=== PATIENT | male | born 1955 | race Caucasian/White ===

== ENCOUNTER 2019-01-03 12:09 | Emergency (ER) | payer OTHER ==
[~2019-01-03] VITALS: Ht 185.4 cm; Wt 78.0 kg
[2019-01-03 12:18] VITALS: BP 119/87
--- NOTE | 2019-01-03 12:22 | NUR ---
Pt ambulated to bed 6.
--- NOTE | 2019-01-03 12:52 | NUR ---
63/M presents to ED with complaints of generalized abd pain x2 months. Pt was sent here by PCP for further evaluation. Pt c/o generalized abd pain, non radiating, dull, 3/10 at this time. Pt states he took a Motrin prior to arrival with relief of pain. Pt reports that without Motrin pain is 10/10. Abdomen soft, slightly distended, facial grimacing with palpation in all x4 quadrants. Hyperactive bowel sounds x 4 quadrants. Pt denies N/V/D, denies constipation. LBM this am. Pt is awake and alert, conversing appropriately. Samoan speaking, translation provided by myself. Pt appropriate at this time. Pt placed into a gown, belongings bag provided and shirt placed in bag and set on chairside. Pt placed on cardiac montior, pulse oximetry and blood pressure monitoring. cardiac monitor shows sinus tachycardac at 103.
--- NOTE | 2019-01-03 13:08 | NUR ---
PT SLEEPING, ABLE TO VISUALIZE RISE AND FALL OF CHEST. WILL CONTINUE TO MONITOR.
--- NOTE | 2019-01-03 13:32 | NUR ---
Patient being evaluated by DR BARTLETT at bedside.
[2019-01-03] MEDS ORDERED: NACL 0.9% 1,000 ML IV SCH (13:39)
[2019-01-03 14:01] LABS: BASOPHILS # (AUTO) 0.1 K/uL (0.00-0.22); BASOPHILS % (AUTO) 0.8 % (0.0-2.0); EOSINOPHILS # (AUTO) 0.1 K/uL (0-0.4); EOSINOPHILS % (AUTO) 1.2 % (0.0-4.0); HEMATOCRIT 41.8 % (36-52); HEMOGLOBIN 14.1 g/dL (12.0-18.0); LYMPHOCYTES # (AUTO) 1.4 K/uL (2.0-11.5); LYMPHOCYTES % (AUTO) 16.4 % (20.5-51.1); MEAN CORPUSCULAR HEMOGLOBIN 31 pg (27-31); MEAN CORPUSCULAR HGB CONC 34 g/dL (33-37); MEAN CORPUSCULAR VOLUME 93.1 fL (80-94); MONOCYTES # (AUTO) 0.7 K/uL (0.8-1.0); MONOCYTES % (AUTO) 8.2 % (1.7-9.3); NEUTROPHILS # (AUTO) 6.2 K/uL (1.8-7.7); NEUTROPHILS % (AUTO) 73.4 % (42.2-75.2); PLATELET COUNT (AUTO) 473 K/uL (140-450); RED BLOOD CELL COUNT(AUTO) 4.49 MIL/uL (4.20-6.10); RED CELL DISTRIBUTION WIDTH 13.1 % (11.6-13.7); WHITE BLOOD COUNT (AUTO) 8.5 K/uL (4.8-10.8)
[2019-01-03 14:16] LABS: ANION GAP 16.1 (8-16); CARBON DIOXIDE 24.3 mmol/L (21-32); CREATININE 0.9 mg/dL (0.7-1.3); POTASSIUM 4.4 mmol/L (3.5-5.1)
[2019-01-03 14:30] LABS: ALBUMIN 3.3 g/dL (3.4-5.0); THYROID STIMULATING HORMONE 2.51 uIU/mL (0.34-3.74); TOTAL BILIRUBIN 0.8 mg/dL (0.0-1.0)
--- NOTE | 2019-01-03 14:43 | NUR ---
PT TO CT VIA WHEELCHAIR
[2019-01-03 14:51] LABS: APPEARANCE,URINE CLEAR (CLEAR); BILIRUBIN,URINE 1+ (NEGATIVE); BLOOD, URINE 2+ (NEGATIVE); LEUKOCYTE ESTERASE ,URINE NEGATIVE (NEGATIVE); NITRITE, URINE NEGATIVE (NEGATIVE); UGLUCOSE NEGATIVE (NEGATIVE)
[2019-01-03 14:52] LABS: COLOR,URINE AMBER (YELLOW)
[2019-01-03 14:54] LABS: PROTHROMBIN TIME 10.3 secs (10.8-13.4)
--- NOTE | 2019-01-03 14:56 | NUR ---
PT RETURNED FROM CT VIA WHEELCHAIR. PT IS ON MONITOR.
[2019-01-03 15:04] LABS: WBC,URINE 0-5 /HPF (0-5)
[2019-01-03] MEDS ORDERED: KETOROLAC 15 MG/ML VIAL IVP ONE (18:05)
--- NOTE | 2019-01-03 18:43 | NUR ---
ROB GREER [phone] EXT [phone] AND GAVE REPORT TO PARAMJIT POWELL.
--- NOTE | 2019-01-03 19:12 | NUR ---
Patient to be transferred to [facility]. Is being transferred due to PANCREATIC CYST and ascities. Receiving facility has accepting physician and available space. ER physician has signed transfer form. Patient or responsible republican has agreed to transfer and signed form. Patient belongings inventoried and will be sent with patient. Copy of nursing notes, lab reports, EKG, Physicians Orders and X-rays to be sent with patient. Report called to PARAMJIT at receiving facility. [facility] ambulance service has been called for transfer. ETA is 30 MIN.
[2019-01-03 19:14] VITALS: BP 132/88
== END 2019-01-03 19:12 | disposition short-term general hospital (02) ==
LOC: MED 12:09
DX: R18.8 Other ascites (principal); R00.0 Tachycardia, unspecified; F17.210 Nicotine dependence, cigarettes, uncomplicated
CPT/HCPCS: 36415; 74177; 80053; 81001; 83690; 84443; 85025; 85610; 85730; 96374; 99285; J1885; J7030; Q9967

== ENCOUNTER 2019-02-19 02:38 | Emergency (ER) | payer OTHER ==
[~2019-02-19] VITALS: Ht 182.9 cm; Wt 65.8 kg
[2019-02-19 02:38] VITALS: BP 99/53
--- NOTE | 2019-02-19 02:38 | NUR ---
PT YON BLS. TAKEN TO BED 3
--- NOTE | 2019-02-19 02:45 | NUR ---
63 YO M BIBA FROM HOME FOR SYNCOPAL EPISODE. PER EMS, FAMILY WAS ABOUT TO BRING PT TO ED FOR C/O ABD PAIN WHEN PT LOST CONSCIOUSNESS. FAMILY WAS ABLE TO CATCH PT BEFORE FALLING TO FLOOR. FAMILY THEN CALLED 911. PT ARRIVES AWAKE, A/O X 4. SPEAKS IN SOFT, WEAK VOICE. APPEARS LETHARGIC AND WEAK. PT IS GAUNT AND EMACIATED. HX OF STAGE IV PANCREATIC CANCER. LAST CHEMO TX X 8 DAYS AGO. PORTACATH NOTED TO RIGHT UPPER CHEST. PT STATES IT WAS PLACED X 4 DAYS AGO. ABD IS DISTENDED BUT SOFT, PLIABLE, TENDER TO DEEP PALPATION. LUNGS CTA. BOWEL SOUNDS HYPOACTIVE +4. PT STATES LAST BM X 5 DAYS AGO. DAUGHTER STATES HIS APPETITE HAS BEEN POOR X 2 DAYS. PMH-- NONE PRIOR TO CANCER DX
--- NOTE | 2019-02-19 02:50 | NUR ---
EMT PERFORMING EKG AT BEDSIDE.
--- NOTE | 2019-02-19 03:05 | NUR ---
IV ACCESS IMPLEMENTED VIA UPPER RIGHT CHEST PORTACATH UTILIZING STERILE TECHNIQUE. BLOOD RETURN 10 ML WASTED. LABS DRAWN AND SENT TO LAB.
[2019-02-19] MEDS ORDERED: NACL 0.9% 500 ML IV SCH (03:10)
--- NOTE | 2019-02-19 03:10 | NUR ---
BLOOD DRAWN AND SENT TO LAB AT THIS TIME
--- NOTE | 2019-02-19 03:17 | NUR ---
PT TAKEN TO CT VIA WC.
[2019-02-19 03:27] LABS: MEAN CORPUSCULAR HGB CONC 34 g/dL (33-37)
[2019-02-19 03:36] LABS: BASOPHILS % (AUTO) 0.1 % (0.0-2.0); EOSINOPHILS % (AUTO) 0.1 % (0.0-4.0); HEMOGLOBIN 13.8 g/dL (12.0-18.0); LYMPHOCYTES # (AUTO) 0.4 K/uL (2.0-11.5); LYMPHOCYTES % (AUTO) 6.6 % (20.5-51.1); MEAN CORPUSCULAR HEMOGLOBIN 31 pg (27-31); MEAN CORPUSCULAR VOLUME 91.3 fL (80-94); MONOCYTES # (AUTO) 0.3 K/uL (0.8-1.0); MONOCYTES % (AUTO) 5.2 % (1.7-9.3); NEUTROPHILS # (AUTO) 5.7 K/uL (1.8-7.7); PLATELET COUNT (AUTO) 267 K/uL (140-450); RED BLOOD CELL COUNT(AUTO) 4.49 MIL/uL (4.20-6.10); RED CELL DISTRIBUTION WIDTH 13.7 % (11.6-13.7); WHITE BLOOD COUNT (AUTO) 6.5 K/uL (4.8-10.8)
--- NOTE | 2019-02-19 03:46 | NUR ---
RETURNED FROM CT VIA .
--- NOTE | 2019-02-19 03:50 | NUR ---
DAUGHTER BROUGHT TO BEDSIDE.
[2019-02-19 03:51] LABS: ANION GAP 18.9 (8-16); CARBON DIOXIDE 23.8 mmol/L (21-32); POTASSIUM 5.7 mmol/L (3.5-5.1)
[2019-02-19 03:52] LABS: ALBUMIN 2.1 g/dL (3.4-5.0); CREATININE 3.1 mg/dL (0.7-1.3); TOTAL BILIRUBIN 1.1 mg/dL (0.0-1.0)
[2019-02-19] MEDS ORDERED: PIPERACILLIN/TAZOBACTAM 3.375 GM in DEXTROSE 5% 50 ML IV ONE (04:00)
[2019-02-19] MEDS ORDERED: NACL 0.9% 2,000 ML IV ONE (04:00)
[2019-02-19 04:06] LABS: PROTHROMBIN TIME 10.2 secs (10.8-13.4)
[2019-02-19] MEDS ORDERED: PIPERACILLIN/TAZOBACTAM 3.375 GM VIAL IV ONE (04:06)
--- NOTE | 2019-02-19 04:07 | NUR ---
DR. WING SPEAKING WITH DAUGHTER.
[2019-02-19] MEDS ORDERED: MORPHINE SULFATE 2 MG/ML SYR IVP ONE (04:20)
[2019-02-19] MEDS ORDERED: INSULIN REGULAR, HUMAN 100 UNIT/ML VIAL SUBQ ONE (04:30)
[2019-02-19] MEDS ORDERED: DEXTROSE 50% 50 ML SYR IVP ONE (04:30)
--- NOTE | 2019-02-19 04:30 | NUR ---
MEDICATED WITH 1 MG IVP MORPHINE FOR 10/10 ABD PAIN. WILL REASSESS.
--- NOTE | 2019-02-19 04:45 | NUR ---
REPORTS SOME PAIN RELIEF; 7/10.
--- NOTE | 2019-02-19 05:14 | NUR ---
# 14 FR straight catheter utilizing sterile technique. Immediate return of 50 ml dark yellow urine noted. Urine sample collected and sent to lab. Pt tolerated procedure well.
[2019-02-19 05:16] LABS: BILIRUBIN,URINE NEGATIVE (NEGATIVE); BLOOD, URINE 1+ (NEGATIVE); COLOR,URINE YELLOW (YELLOW); LEUKOCYTE ESTERASE ,URINE NEGATIVE (NEGATIVE); NITRITE, URINE NEGATIVE (NEGATIVE); PH,URINE 5.5 (5.0-9.0); UGLUCOSE TRACE (NEGATIVE)
[2019-02-19 05:22] LABS: APPEARANCE,URINE SLIGHTLY HAZY (CLEAR)
[2019-02-19 05:24] LABS: RBC,URINE 11-20 (MOD) /HPF (0-5)
[2019-02-19 05:25] LABS: HYALINE CASTS, URINE 0-5 /LPF (None Seen)
[2019-02-19] MEDS ORDERED: RIVA20TA PO (05:26)
[2019-02-19] MEDS ORDERED: HYDR-5092 PO (05:27)
--- NOTE | 2019-02-19 06:26 | NUR ---
RESTING IN BED WITH EYES CLOSED. SON SITTING NEARBY. VSS.
--- NOTE | 2019-02-19 06:59 | NUR ---
Patient to be transferred to [facility]. Is being transferred due to insurance authorization. Receiving facility has accepting physician and available space. ER physician has signed transfer form. Patient or responsible green party has agreed to transfer and signed form. Patient belongings inventoried and will be sent with patient. Copy of nursing notes, lab reports, EKG, Physicians Orders and X-rays to be sent with patient. Report called to SHERRY Ferrell at receiving facility. [facility] ambulance service has been called for transfer. ETA is 5-10 mins.
--- NOTE | 2019-02-19 06:59 | NUR ---
[facility] TRANSPORT AT BEDSIDE
[2019-02-19 07:05] VITALS: BP 93/56
--- NOTE | 2019-02-19 07:05 | NUR ---
REPORT GIVEN TO [facility]. PT AMBULATES TO [facility] WITH ASSIST. VSS AT TIME OF TRANSFER. DAUGHTER ACCOMPANYING.
== END 2019-02-19 07:05 | disposition short-term general hospital (02) ==
LOC: MED 02:38
DX: C25.9 Malignant neoplasm of pancreas, unspecified (principal); E87.1 Hypo-osmolality and hyponatremia; E87.5 Hyperkalemia; R79.89 Other specified abnormal findings of blood chemistry; E86.0 Dehydration; N39.0 Urinary tract infection, site not specified; E87.2 Acidosis; Z79.899 Other long term (current) drug therapy; Z85.07 Personal history of malignant neoplasm of pancreas
CPT/HCPCS: 36415; 70450; 71045; 74176; 80053; 81001; 83605; 83690; 83880; 84484; 85025; 85610; 85730; 87040; 87086; 93005; 96361; 96365; 96372; 96375; 99291; C1758; J1815; J2270; J2543; J7030

== ENCOUNTER 2019-04-08 00:09 | Inpatient (IN) | payer OTHER ==
[~2019-04-08] VITALS: Ht 172.7 cm; Wt 53.1 kg
[2019-04-08] VITALS (47 sets, daily range): BP systolic 64–167; BP diastolic 38–107
[~2019-04-08 00:09] MED LIST: HYDR-5092 PO; RIVA20TA PO
--- NOTE | 2019-04-08 00:09 | NUR ---
BIBA C/O SYNCOPE X TODAY. PT WAS D/C FROM [place] 3HRS AGO BEFORE CALLING 911. LUNG ASOUNDS ARE RONCHI ALL THROUHOUT. NO SOB PRESENT. SPO2 100% 2 LNC. NO RESP DISTRESS NOTED. HEART SOUND S1S2 PRESENT. PEG PRESENT. MEDIPORT PRESENT. NO EDEMA PRESENT. TEMP 92.7 RECTAL. BLANKET WARMER STARTED. GCS 11. NO TRUAMA OR INJURY NOTED. VS UNSTABLE. BP 60/40. FLUIDS STARTED. SKIN IS COLD AND HAS BURSING AROUND UPPER EXTREM. NKA. PMH: PANCERATIC CANCER, CHEMO THERAPY 1 MONTH AGO, HTN, DKA, DM,
[2019-04-08] MEDS ORDERED: ALBUTEROL SULFATE/IPRATROPIU 3 ML SOL IH ONE ×2 (00:18→00:20)
[2019-04-08] MEDS ORDERED: NACL 0.9% 1,000 ML IV ONE ×2 (00:20→02:40)
[2019-04-08] MEDS ORDERED: BLOOD GLUCOSE MONITORING 1 DEV DEV FS ONE (00:20)
[2019-04-08 00:59] LABS: HEMATOCRIT 28.5 % (36-52); HEMOGLOBIN 8.8 g/dL (12.0-18.0); MEAN CORPUSCULAR HEMOGLOBIN 32 pg (27-31); MEAN CORPUSCULAR HGB CONC 31 g/dL (33-37); MEAN CORPUSCULAR VOLUME 104.9 fL (80-94); PLATELET COUNT (AUTO) 74 K/uL (140-450); RED BLOOD CELL COUNT(AUTO) 2.71 MIL/uL (4.20-6.10); WHITE BLOOD COUNT (AUTO) 21.5 K/uL (4.8-10.8)
[2019-04-08 01:00] LABS: APPEARANCE,URINE HAZY (CLEAR); BILIRUBIN,URINE NEGATIVE (NEGATIVE); BLOOD, URINE 2+ (NEGATIVE); COLOR,URINE YELLOW (YELLOW); LEUKOCYTE ESTERASE ,URINE 1+ (NEGATIVE); NITRITE, URINE NEGATIVE (NEGATIVE); UGLUCOSE NEGATIVE (NEGATIVE)
[2019-04-08 01:11] LABS: RBC,URINE 11-20 (MOD) /HPF (0-5)
[2019-04-08 01:17] LABS: LYMPHOCYTES % (MANUAL) 2 % (20-46); MONOCYTES % (MANUAL) 1 % (5-12)
--- NOTE | 2019-04-08 01:17 | NUR ---
PT TRANSFERRED TO CT VIA [facility]
[2019-04-08 01:26] LABS: ALBUMIN 1.4 g/dL (3.4-5.0); ANION GAP 25.5 (8-16); CARBON DIOXIDE 16.9 mmol/L (21-32); CREATININE 3.5 mg/dL (0.6-1.3); POTASSIUM 3.4 mmol/L (3.5-5.1); TOTAL BILIRUBIN 1.1 mg/dL (0.0-1.0)
[2019-04-08] MEDS ORDERED: PIPERACILLIN/TAZOBACTAM 3.375 GM in DEXTROSE 5% 50 ML IV ONE (01:35)
--- NOTE | 2019-04-08 01:39 | NUR ---
PT RETURNED BACK FROM CT VIA [facility].
[2019-04-08] MEDS ORDERED: PIPERACILLIN/TAZOBACTAM 3.375 GM VIAL IV ONE (01:40)
[2019-04-08] MEDS ORDERED: NOREPINEPHRINE 4 MG/4 ML VIAL IV ONE (03:05)
[2019-04-08] MEDS ORDERED: NOREPINEPHRINE 4 MG in DEXTROSE 5% 250 ML IV ONE (03:05)
[2019-04-08 03:08] LABS: PROTHROMBIN TIME 11.9 secs (10.8-13.4)
[2019-04-08] MEDS ORDERED: VANCOMYCIN PER PHARMACY MC PRN (03:25)
[2019-04-08] MEDS ORDERED: DEXT 5% / NACL 0.45% 1,000 ML IV SCH (03:30)
[2019-04-08] MEDS ORDERED: ONDANSETRON 4 MG/2 ML VIAL IVP PRN (03:30)
[2019-04-08] MEDS ORDERED: HYDROcodone/APAP 5/325 MG 1 TAB TAB PO PRN (03:30)
[2019-04-08] MEDS ORDERED: ACETAMINOPHEN 325 MG TAB PO PRN (03:30)
[2019-04-08] MEDS ORDERED: ALBUTEROL SULFATE/IPRATROPIU 3 ML SOL IH PRN (03:30)
--- NOTE | 2019-04-08 03:35 | NUR ---
LEVOPHED STARTED: 0.5MCG/MIN RATE: 1.87ML/HR. BP 76/46, HR 97, SPO2 100% 2L NC. SWAPNA LAGUNAS SAID ITS OKAY TO START LEVOPHED THROUGH THE MEDIPORT.
[2019-04-08] MEDS ORDERED: DEXTROSE 10% 1,000 ML IV ONE ×2 (03:47→22:50)
--- NOTE | 2019-04-08 03:50 | NUR ---
LEVOPHED TITRATED: INCREASED TO 2MCG/MIN. BP 75/46, HR 102, SPO2 100% 2L NC.
[2019-04-08] MEDS: DEXTROSE 10% 500 ML IV SCH ×3 (03:55→23:21)
[2019-04-08] MEDS ORDERED: VANCOMYCIN 1,000 MG in DEXTROSE 5% 250 ML IV SCH (04:00)
--- NOTE | 2019-04-08 04:00 | NUR ---
LEVOPHED TIRATED: INNCREASED TO 4MCG/MIN. RATE: 15ML/HR. BP:77/46, HR 103, SPO2 100% 2L NC.
--- NOTE | 2019-04-08 04:15 | NUR ---
LEVOPGED TITRATED. INCREASED TO 6MCG/MIN. RATE: 22.5ML/HR. BP: 79/53. HR 101. SPO2 100% 2L NC.
[2019-04-08] MEDS ORDERED: DEXTROSE 50% 50 ML SYR IVP ONE ×2 (04:26→06:05)
[2019-04-08] MEDS ORDERED: GLUCAGON 1 MG VIAL ONE (04:27)
--- NOTE | 2019-04-08 04:28 | NUR ---
D50 IVP 50ML ADMINSTERED.
--- NOTE | 2019-04-08 04:30 | NUR ---
STARTED BiPAP IPAP12, EPAP 5, BACK UP RR 14, FiO2 25 WITH SP02 OF 99%. COARSE BREATH SOUNDS. PT TOLERATING WELL. WILL CONTINUE TO MONITOR PT.
--- NOTE | 2019-04-08 04:30 | NUR ---
RT AT BEDSIDE, BIPAP STARTED
--- NOTE | 2019-04-08 04:30 | NUR ---
LEVOPHED TITRATED. INCREASED TO 8MCG/MIN, RATE: 30ML/HR, BP:82/56, HR: 98, SPO2 100% BIPAP.
[2019-04-08] MEDS ORDERED: VANCOMYCIN 1,000 MG VIAL ONE (04:31)
[2019-04-08] MEDS ORDERED: fentaNYL 0.05 MG/ML VIAL ONE (04:52)
--- NOTE | 2019-04-08 05:10 | NUR ---
RT WAS STAND-BY FOR THORACENTESIS PROCEDURE. 1.5L OF FLUID WAS REMOVED. PT STILL ON BiPAP AND TOLERATING WELL. WILL CONTINUE TO MONITOR PT.
--- NOTE | 2019-04-08 05:20 | NUR ---
POST THORACENTESIS: 1.5L REMOVAL OF SEROSANGIOUS FLUID. VS: BP 71/45, HR 115, SPO2 99% BIPAP.
--- NOTE | 2019-04-08 05:27 | NUR ---
LEVOPHGED TITRATED, INCREASED TO 10MCG/MIN, RATE:37.5ML/HR, BP:77/50, HR 112, SPO2 99% BIPAP.
[2019-04-08] MEDS ORDERED: fentaNYL 0.05 MG/ML VIAL IVP ONE (05:35)
[2019-04-08] MEDS ORDERED: SENN1TAB40 PO (05:59)
[2019-04-08] MEDS ORDERED: HYDR-5123 PO (05:59)
[2019-04-08] MEDS ORDERED: PANT40EC PO (05:59)
[2019-04-08] MEDS ORDERED: MIDO10TA PO (05:59)
--- NOTE | 2019-04-08 06:00 | NUR ---
levophed rate remains the same. 10mcg/min, rate:37.5ml/hr. bp: 92/62, hr: 110, spo2 100% bipap.
[2019-04-08] MEDS: ALBUTEROL SULFATE/IPRATROPIU 3 ML SOL IH SCH ×3 (06:27→19:27)
--- NOTE | 2019-04-08 06:38 | NUR ---
levophed rate remains the same. 10mcg/min, rate:37.5ml/hr. bp: , hr: 110, spo2 100% bipap.
[2019-04-08 06:53] LABS: BASOPHILS # (AUTO) 0.1 K/uL (0.00-0.22); BASOPHILS % (AUTO) 0.6 % (0.0-2.0); HEMOGLOBIN 8.3 g/dL (12.0-18.0); LYMPHOCYTES # (AUTO) 0.2 K/uL (2.0-11.5); LYMPHOCYTES % (AUTO) 0.9 % (20.5-51.1); MEAN CORPUSCULAR HEMOGLOBIN 33 pg (27-31); MEAN CORPUSCULAR HGB CONC 31 g/dL (33-37); MEAN CORPUSCULAR VOLUME 105.4 fL (80-94); MONOCYTES # (AUTO) 0.3 K/uL (0.8-1.0); MONOCYTES % (AUTO) 1.1 % (1.7-9.3); NEUTROPHILS # (AUTO) 23.1 K/uL (1.8-7.7); NEUTROPHILS % (AUTO) 97.4 % (42.2-75.2); PLATELET COUNT (AUTO) 66 K/uL (140-450); RED BLOOD CELL COUNT(AUTO) 2.56 MIL/uL (4.20-6.10); RED CELL DISTRIBUTION WIDTH 25.3 % (11.6-13.7); WHITE BLOOD COUNT (AUTO) 23.7 K/uL (4.8-10.8)
--- NOTE | 2019-04-08 06:57 | NUR ---
levophed rate remains the same. 10mcg/min, rate:37.5ml/hr. bp: 99/68, hr: 110, spo2 100% bipap.
[2019-04-08] MEDS ORDERED: PIPERACILLIN/TAZOBACTAM 2.25 GM VIAL IV ONE (07:04)
--- NOTE | 2019-04-08 07:12 | NUR ---
RECEIVED PT ON LEVOPHED DRIP AT 10MCG/MIN FROM SHERRY TAVARES.
[2019-04-08] MEDS: PIPERACILLIN/TAZOBACTAM 2.25 GM in DEXTROSE 5% 50 ML IV SCH ×3 (07:23→23:20)
--- NOTE | 2019-04-08 07:36 | NUR ---
levophed rate remains the same. 10mcg/min, rate:37.5ml/hr. bp: 92/63, hr: 112, spo2 100% bipap. will continue to monitor.
[2019-04-08 07:38] LABS: CREATININE 3.2 mg/dL (0.6-1.3); MAGNESIUM 2.3 mg/dL (1.8-2.4)
--- NOTE | 2019-04-08 07:38 | NUR ---
Abiel winston in [facility] - 04/08/19 at 0738 by [email or web address] Pt report given to timothy keating. Transfer of care at this time.
--- NOTE | 2019-04-08 07:39 | NUR ---
Pt report given to timothy keating. Transfer of care at this time.
--- NOTE | 2019-04-08 07:40 | NUR ---
RECEIVED REPORT FROM SHERRY TAVARES. TRANSFER OF CARE AT THIS TIME
[2019-04-08 07:46] LABS: ANION GAP 25.1 (8-16); CARBON DIOXIDE 14.3 mmol/L (21-32); POTASSIUM 3.4 mmol/L (3.5-5.1)
--- NOTE | 2019-04-08 07:50 | NUR ---
PATIENT HAVE VERY LIMITED INFORMATION IN MEDICAL CHART TO ACCURATELY SCREEN (NO FEI SCORE, NO H&P, NO DIET, NO RN I/A...). HISTORY AND REVIEW OF SYSTEMS ARE LIMITED DUE TO PATIENT'S CLINICAL CONDITION PER ER PHYSICIAN DOCUMENTATION WELL. PATIENT IS NOW CATEGORIZED NUTRITION SCREEN DUE IN TWO DAYS FROM ADMIT DATE. RD WILL SCREEN AND IDENTIFY PATIENT NUTRITION RISK AND/OR ASSESS PATIENT ACCORDINGLY WITHIN 2 DAYS OF ADMIT DATE. 04/10/19 MICHELLE BARRERA MBA, RD
[2019-04-08 08:00] LABS: SPECIMENTYPE,BODY FLUID THORACENTHESIS
[2019-04-08 08:01] LABS: APPEARANCE,SPUN,BODY FLUID CLEAR (CLEAR); APPEARANCE,UNSPUN,BODY FLUID BLOODY (CLEAR); COLOR,BODY FLUID YELLOW (LT YELLOW)
[2019-04-08 08:02] LABS: TOTAL VOLUME,BODY FLUID 16 mL
--- NOTE | 2019-04-08 08:15 | NUR ---
Abiel winston in [facility] - 04/08/19 at 0819 by [email or web address] LEVOFED REMAINS AT 10MCG. HR115, RR16/ BP 91/60. WILL CONTINUE TO TITRATE PER PROTOCOL
--- NOTE | 2019-04-08 08:20 | NUR ---
LEVOPHED REMAINS AT 10MCG. HR115, RR16/ BP 91/60. WILL CONTINUE TO TITRATE PER PROTOCOL
--- NOTE | 2019-04-08 08:30 | NUR ---
PT SITTING UPRIGHT, CALM. PT TRIES TO REMOVE BIPAP, EASILY REDIRECTED. VSS, WILL CONTINUE TO TITRATE LEVOPHED PER PROTOCOL.
--- NOTE | 2019-04-08 08:50 | NUR ---
ULTRASOUND AT BEDSIDE.
[2019-04-08] MEDS: ALBUMIN HUMAN 25% 100 ML IV SCH ×3 (10:18→17:58)
[2019-04-08] MEDS: SODIUM BICARBONATE 8.4% 50 MEQ in DEXTROSE 5% 1,000 ML IV SCH ×2 (10:19→23:20)
[2019-04-08] MEDS ORDERED: KCL 20 MEQ/WATER INJ PREMIX 200 ML IV ONE (10:20)
--- NOTE | 2019-04-08 10:20 | NUR ---
SPOKE TO PHARMACY, STATED MEDICATION COMPATIBILITY. ALBUMIN AND BICARB RUNNING AT THIS TIME.
--- NOTE | 2019-04-08 10:28 | NUR ---
RECEIVED NEW BAG OF LEVOPHED FROM PHARMACY. PLACED ON PUMP, WILL CONTINUE TO TITRATE PER PROTOCOL
--- NOTE | 2019-04-08 10:46 | NUR ---
LEVOPHED TITRATED TO 14MCG/MIN. 83/53, 112, 100%
--- NOTE | 2019-04-08 10:52 | NUR ---
PT SITTING UPRIGHT, AWAKE AND RESPONSIVE TO NAME, REMAINS ON BIPAP. WILL CONTINUE TO MONITOR
--- NOTE | 2019-04-08 11:07 | NUR ---
PT REFUSES ABG
[2019-04-08 11:14] LABS: GLUCOSE,BODY FLUID 108 mg/dL
--- NOTE | 2019-04-08 11:16 | NUR ---
ONLY 100ML OF POTASSIUM PULLED, SECOND 100ML PULLED FROM [employer].
[2019-04-08 11:20] LABS: RBC, BODY FLUID 72130 /cu. mm.
--- NOTE | 2019-04-08 11:32 | NUR ---
pt off bipap on 3lnc moved to icu 4
[2019-04-08 11:35] LABS: LDH,BODY FLUID 414 U/L
--- NOTE | 2019-04-08 11:35 | NUR ---
RECEIVED FROM ER IN [facility].HE IS AWAKE AND ALERT, RECEIVED AT BEDSIDE
--- NOTE | 2019-04-08 11:41 | NUR ---
Patient will be admitted to care of DR WADE. Admited to ICU. Will go to room 4. Belongings list completed. Report to SHERRY JARRETT.
[2019-04-08 11:54] LABS: POLYNUCLEAR, BODY FLUID 79 %
[2019-04-08] MEDS ORDERED: METOCLOPRAMIDE 10 MG/2 ML INJ VIAL IVP PRN (12:50)
[2019-04-08 13:58] LABS: WBC, BODY FLUID 60 /cu. mm.
--- NOTE | 2019-04-08 17:45 | NUR ---
PT'S DAUGHTER THADDEUS AT BEDSIDE. PT C/O GENERALIZED PAIN 08/31. WILL ADMINISTER MORPHINE ORDERED.
[2019-04-08] MEDS: MORPHINE SULFATE 4 MG/ML SYR IVP PRN (17:46)
--- NOTE | 2019-04-08 19:30 | NUR ---
RECEIVED PT FROM AM SHIFT. PT IN NO APPARENT RESPIRATORY DISTRESS AT THIS TIME; HR 93, RR 13, SPO2 98% 2L NC, AND A COARSE BREATH SOUNDS. HHN TX GIVEN ORDERED WITH NO ADVERSE REACTION. BVM AT BEDSIDE AND HOB > 30. FAMILY AT BEDSIDE. BiPAP IN PT ROOM PRN. WILL CONTINUE TO MONITOR PT.
--- NOTE | 2019-04-08 19:30 | NUR ---
REPORT RECEIVED FROM AM SHIFT RN. PT A&OX3. ABLE TO FOLLOW COMMANDS. MEDI PORT ON R UPPER CHEST. IV SITE FOREARM 22 GAUGE. LEVOPHED 14MCG/KG/MIN INFUSING, ALBUMIN AT 50ML/HR, AND D10 AT 70ML/HR. HEART SOUNDS HEARD S1 AND S2. CAP REFILL LESS THAN 2 SECONDS. BOWEL SOUNDS ACTIVE. SKIN IS WARM AND DRY, GENERALIZED EDEMA ON BILAT LOWER LEGS. BRUISING ON R AND L UPPER ARMS NOTED. GTUBE IN PLACE, CLAMPED. DRAINAGE BAG ON R LOWER ABDOMEN. SACRAL WOUND NOTED. HOB 30 DEGREES. BED LOCKED IN LOWEST POSITION. Addendum: 04/09/19 at 0025 by Lenard Manuel RN DRY WEIGHT 56KG.
--- NOTE | 2019-04-08 20:00 | NUR ---
BLOOD SUGAR CHECK 100.
[2019-04-08] MEDS: NOREPINEPHRINE 4 MG in DEXTROSE 5% 250 ML IV SCH (20:13)
--- NOTE | 2019-04-08 20:30 | NUR ---
DR ALEXANDRA, DIRECTOR VISUAL IN TO ASSESS PT.
--- NOTE | 2019-04-08 22:45 | NUR ---
PLACED PT ON BiPAP SETTINGS ORDERED FOR NOC; IPAP 12, EPAP 5, BACK UP RATE 14, FiO2 25% WITH SPO2 OF 99%. SKIN IS INTACT. PROTECTIVE GEL APPLIED ON THE NASAL BRIDGE. BiPAP PLUGGED IN RED OUTLET, ALARM SET AND AUDIBLE, BVM AT BEDSIDE, AND HOB > 30. PT IS TOLERATING WELL. WILL CONTINUE TO MONITOR PT.
[2019-04-09] VITALS (83 sets, daily range): BP systolic 96–168; BP diastolic 53–94
[2019-04-09] MEDS: ALBUMIN HUMAN 25% 100 ML IV SCH ×4 (00:13→17:16)
--- NOTE | 2019-04-09 00:30 | NUR ---
PT RESTING IN BED, AWAKE AND ALERT, WATCHING TELEVISION. ON BIPAP MACHINE, RESPIRATIONS EVEN AND UNLABORED. CHEST RISE IS SYMMETRICAL. HOB 30 DEGREES, BED LOCKED IN LOWEST POSITION. WILL CONTINUE TO MONITOR.
[2019-04-09] MEDS ORDERED: NOREPINEPHRINE 4 MG/4 ML VIAL IV ONE (01:06)
[2019-04-09] MEDS: ALBUTEROL SULFATE/IPRATROPIU 3 ML SOL IH SCH ×4 (01:26→19:03)
--- NOTE | 2019-04-09 02:12 | NUR ---
PT RESTING IN BED, WATCHING TELEVISION. PT ON BIPAP, RESPIRATIONS EVEN AND UNLABORED. CHEST RISE IS SYMMETRICAL. WILL CONTINUE TO MONITOR.
[2019-04-09] MEDS: NOREPINEPHRINE 4 MG in DEXTROSE 5% 250 ML IV SCH ×2 (02:19→13:39)
[2019-04-09] MEDS: LORazepam 2 MG/ML VIAL IVP PRN (03:23)
--- NOTE | 2019-04-09 04:15 | NUR ---
PT REFUSED TO TURN AND REPOSITION.
--- NOTE | 2019-04-09 06:35 | NUR ---
PT HAS REDNESS FOREHEAD, BRIDGE OF NOSE
[2019-04-09] MEDS: PIPERACILLIN/TAZOBACTAM 2.25 GM in DEXTROSE 5% 50 ML IV SCH ×3 (07:22→22:53)
--- NOTE | 2019-04-09 07:25 | NUR ---
RECEIVED REPORT FROM PM SHIFT NURSE.
--- NOTE | 2019-04-09 07:30 | NUR ---
REPORT GIVEN TO AM SHIFT RN FOR CONTINUITY OF CARE.
--- NOTE | 2019-04-09 08:00 | NUR ---
PT EYES HALF OPEN. VERY SUMA. NON VERBAL, UNABLE TO MAKE NEEDS KNOWN OR FOLLOW COMMANDS. MOANING WHEN TURN PT. BEDSIDE MONITOR SHOWS HR 80S. ON O2 NC. O2 SATS 98%. PT HAS MEDI PORT ON R UPPER CHEST RUNNING LEVOPHED AT 6 MCG/MIN= 22.5 MLS/H. PT ALSO HAS IV TO LEFT HAND 22 GAUGE AND LEFT FOREARM # 20. ALBUMIN AT 50ML/HR,BICARB 8.4% 50 MEQ IN D5 RUNNING AT 75 CC/HR AND D10 AT 70ML/HR. PT ALSO HAS G-TUBE AND DRAINAGE BAG TO RIGHT LATERAL ABD IN PLACE .DRESSING CHANGED WITH CHARGE NURSE. BOWEL SOUNDS ACTIVE. EDEMA TO RIGHT FOREARM . MULTIPLE BRUISING ON R AND L UPPER ARMS NOTED. SACRAL OPEN WOUND NOTED WITH SOME BLOOD WHILE TURNING PT. COVERED WITH FOAM DRESSING. HOB 30 DEGREES. BED LOCKED IN LOWEST POSITION.
[2019-04-09] MEDS ORDERED: METOCLOPRAMIDE 10 MG/2 ML INJ VIAL IVP PRN (08:43)
[2019-04-09] MEDS ORDERED: TPN PER PHARMACY MC PRN (09:55)
--- NOTE | 2019-04-09 10:00 | NUR ---
REMOVED BIPAP PER FAMILY 2L N/C PLACED
[2019-04-09] MEDS: MORPHINE SULFATE 4 MG/ML SYR IVP PRN ×2 (12:31→21:20)
--- NOTE | 2019-04-09 13:28 | NUR ---
FAMILY DEFERS HHN AT THIS TIME
[2019-04-09] MEDS: SODIUM BICARBONATE 8.4% 50 MEQ in DEXTROSE 5% 1,000 ML IV SCH (15:04)
--- NOTE | 2019-04-09 15:04 | NUR ---
PT NO SITUATION CHANGE. ON BIPAP. FAMILY AT BEDSIDE.
[2019-04-09 17:36] LABS: MONOCYTES # (AUTO) 0.1 K/uL (0.8-1.0); RED BLOOD CELL COUNT(AUTO) 1.75 MIL/uL (4.20-6.10)
[2019-04-09 17:40] LABS: BASOPHILS # (AUTO) 0.1 K/uL (0.00-0.22); BASOPHILS % (AUTO) 0.4 % (0.0-2.0); LYMPHOCYTES # (AUTO) 0.3 K/uL (2.0-11.5); LYMPHOCYTES % (AUTO) 1.8 % (20.5-51.1); MEAN CORPUSCULAR HEMOGLOBIN 32 pg (27-31); MEAN CORPUSCULAR HGB CONC 32 g/dL (33-37); MEAN CORPUSCULAR VOLUME 100.3 fL (80-94); MONOCYTES % (AUTO) 0.3 % (1.7-9.3); NEUTROPHILS % (AUTO) 97.5 % (42.2-75.2); PLATELET COUNT (AUTO) 31 K/uL (140-450); WHITE BLOOD COUNT (AUTO) 19.5 K/uL (4.8-10.8)
[2019-04-09 17:48] LABS: HEMOGLOBIN 5.7 g/dL (12.0-18.0)
[2019-04-09 17:49] LABS: HEMATOCRIT 17.6 % (36-52)
--- NOTE | 2019-04-09 17:49 | NUR ---
PT ACCIDENTLY PULL OUT IV TO LEFT AC # 20 WHILE PT TRYING TO REMOVE O2 MASK .
--- NOTE | 2019-04-09 17:53 | NUR ---
REMOVED BIPAP PER FAMILY
[2019-04-09 17:55] LABS: ANION GAP 22.9 (8-16); CARBON DIOXIDE 15.6 mmol/L (21-32); CREATININE 3.1 mg/dL (0.6-1.3); POTASSIUM 3.5 mmol/L (3.5-5.1)
[2019-04-09 17:56] LABS: MAGNESIUM 2.1 mg/dL (1.8-2.4); PHOSPHORUS 6.1 mg/dL (2.5-4.9)
--- NOTE | 2019-04-09 18:00 | NUR ---
NOTIFIED DR. GONZALEZ PT HGB/HCT : 5.7/17.6, BUN 120. DR. GONZALEZ ORDERED THREE UNITS PRBC. BLOOD TRANSFUSION CONSENT PRINTED OUT , NOTIFIED DR. GONZALEZ HE NEEDS TO COME TO HOSPITAL TO SIGN THE CONSENT.
--- NOTE | 2019-04-09 18:18 | NUR ---
PT O2 SATS DECREASED TO 88% WHEN PT ON O2 NC 2L/MIN. CALLED RT, PER RT JUST INCREASE O2 TO 4L/MIN. CARRIED OUT.
--- NOTE | 2019-04-09 18:24 | NUR ---
PT O2 SATS INCREASED TO 90% AFTER I INCREASED O2 TO 4L/MIN, AFTER THAT O2 SATS DECREASED TO 84%. INCREASED O2 TO 10 L/MIN AND CALLED RT.
--- NOTE | 2019-04-09 19:12 | NUR ---
PT PLACED BACK ON BiPAP AT THIS TIME DUE TO INCREASE WOB; IPAP 12, EPAP 5, BACK UP RATE 14, FiO2 30% WITH SPO2 OF 96%. PT TRIES TO REMOVE MASK. FAMILY CONSTANTLY REMINDING PT TO LEAVE THE MASK ON. HHN TX GIVEN ORDERED WITH NO ADVERSE REACTION. WILL CONTINUE TO MONITOR.
--- NOTE | 2019-04-09 19:30 | NUR ---
NON VERBAL, UNABLE TO MAKE NEEDS KNOWN. DOES NOT FOLLOW COMMANDS. ON BIPAP WITH SETTINGS FOLLOWS: BIPAP 12/5, RATE 14, FI02 30%. PT HAS MEDI PORT ON R UPPER CHEST. 22G IV TO LEFT HAND. ALBUMIN AT 50ML/HR, BICARB 8.4% 50 MEQ IN D5 RUNNING AT 75 CC/HR. G-TUBE IN PLACE. DRAINAGE TUBE TO RIGHT LATERAL ABD IN PLACE,. PER FAMILY IT IS DRAINED Q2 DAYS. DRESSING CHANGED THIS AM PER AM NURSE. BOWEL SOUNDS ACTIVE, ABD SOFT, NON-DISTENDED. ESTRADA CATH IN PLACE DRAINING CONCENTRATED, STRAW-COLORED URINE TO GRAVITY. EDEMA TO LEFT ARM WITH SOME CLEAR, BLOOD-TINGED, WEEPING NOTED. SCATTERED BRUISING ON BILATERAL UPPER ARMS NOTED. SACRAL WOUND COVERED WITH INTACT FOAM DRESSING. FAMILY AT BEDSIDE. HOB 30 DEGREES. BED LOCKED IN LOWEST POSITION. ALL OTHER SAFETY PRECAUTIONS IN PLACE. WILL CONTINUE TO MONITOR.
--- NOTE | 2019-04-09 21:55 | NUR ---
RN CALLED THAT SON WANT THE BiPAP TO BE REMOVED FROM PT. AT BEDSIDE RT EXPLAINED THE NEED FOR THE BiPAP IS TO DECREASED WOB. INFORMED SON AND DAUGHTER THE INDICATION AND CONTRAINDICATION OF BiPAP. DAUGHTER AND SON AGREED THAT BiPAP SHOULD BE TAKEN OFF IF PT CONTINUE TO REMOVE MASK (UNCOOPERATIVE).
--- NOTE | 2019-04-09 22:00 | NUR ---
REPOSITIONED WITH PRESSURE AREAS OFFLOADED. FLACC 0. PT REMAINS ON BIPAP WITH PRIOR SETTINGS. FAMILY AT BEDSIDE. SAFETY PRECAUTIONS IN PLACE. BED LOW AND LOCKED. HOB 35 DEGREES. WILL FOLLOW-UP.
[2019-04-10] VITALS (41 sets, daily range): BP systolic 68–131; BP diastolic 39–66
--- NOTE | 2019-04-10 | NUR ---
FAMILY REMAINS AT BEDSIDE. FLACC 0. REPOSITIONED WITH PRESSURE AREAS OFFLOADED. CONTINUES ON 3RD BAD OF PRBC @ THIS TIME. NO ADVERSE REACTIONS NOTED. TEMP REMAINS WNL. SAFETY PRECAUTIONS IN PLACE. BED LOW AND LOCKED. WILL CONTINUE TO MONITOR. Addendum: 04/10/19 at 0405 by Tena Hardin RN ERROR- 2ND BAG OF PRBC
[2019-04-10] MEDS: ALBUMIN HUMAN 25% 100 ML IV SCH ×2 (01:04→05:06)
[2019-04-10] MEDS: ALBUTEROL SULFATE/IPRATROPIU 3 ML SOL IH SCH ×3 (01:18→19:36)
[2019-04-10] MEDS: SODIUM BICARBONATE 8.4% 50 MEQ in DEXTROSE 5% 1,000 ML IV SCH (03:00)
[2019-04-10] MEDS: MORPHINE SULFATE 4 MG/ML SYR IVP PRN (04:13)
--- NOTE | 2019-04-10 04:20 | NUR ---
MORPHINE ADMINISTERED ORDERED FOR SEVERE PAIN @ THIS TIME. PT UNABLE TO VERBALLY RESPOND BUT SHAKES HIS HEAD YES, THAT HE IS IN PAIN AND WOULD LIKE MORPHINE. FLACC 7. RESPIRATIONS WNL. BED LOW AND LOCKED WITH SIDE RAILS UP. WILL FOLLOW-UP.
[2019-04-10] MEDS: PIPERACILLIN/TAZOBACTAM 2.25 GM in DEXTROSE 5% 50 ML IV SCH (06:14)
[2019-04-10] MEDS: LORazepam 2 MG/ML VIAL IVP PRN (06:40)
--- NOTE | 2019-04-10 06:40 | NUR ---
PRN ATIVAN ADMINISTERED ORDERED FOR AGITATION. PT ATTEMPTING TO PULL BIPAP OFF. FAMILY AT BEDSIDE, DOES NOT WANT RESTRAINTS, SAYS THEY WILL STAY WITH PATIENT.
--- NOTE | 2019-04-10 06:54 | NUR ---
REC'D PT ON RAMILA V60 BIPAP SETTINGS 12\5 RR 14 FIO2 30% ALARMS ON AND AUDIBLE AND AMBU BAG AT SIDE OF BIPAP AND BIPAP IS PLUGGED INTO RED OUTLET, I\L TX GIVEN WITH DUONEB 3ML WITH NO ADVERSE REACTION TO TX B\S ARE RHONCHI BILATERALLY PT IS WEARING MED FACE MASK AND SKIN HAS REDNESS ON NOSE FAMILY AT BEDSIDE INCREASED FIO2 TO 100% DUE TO PT O2 SAT DROPPED TO 85%
--- NOTE | 2019-04-10 08:00 | NUR ---
RECEIVED PT FROM PM SHIFT RN AT 0720. PT EYES HALF OPEN. NON VERBAL, UNABLE TO MAKE NEEDS KNOWN OR FOLLOW COMMANDS. BEDSIDE MONITOR SHOWS HR 70S. ON BIPAP IRQ8=222%. O2 SATS 97%. PT HAS MEDI PORT ON R UPPER CHEST RUNNING BICARB 8.4% 50 MEQ IN D5 RUNNING AT 75 CC/HR . PT ALSO HAS G-TUBE AND DRAINAGE TUBE TO RIGHT LATERAL ABD IN PLACE .DRESSING IS CLEAN. A LITTLE BIT WET. PT HAS OPEN SOUND TO SACRAL. PT'S DAUGHTER AT BEDSIDE ( SHE STATED SHE DOES NOT WANT ME TO TURN AND CHANGE DRESSING AT THIS TIME DUE TO SHE DOES NOT WANT TO MOVE HER DAD TO MAKE HIM UNCOMFORTABLE) . F/C IN PLACE WITH LITTLE URINE NOTED. EDEMA TO RIGHT FOREARM . MULTIPLE BRUISING ON R AND L UPPER ARMS NOTED. HOB 30 DEGREES. BED LOCKED IN LOWEST POSITION.
--- NOTE | 2019-04-10 08:45 | NUR ---
PATIENT HAS BEEN SCREENED AND CATEGORIZED HIGH NUTRITION RISK. PATIENT WILL BE SEEN WITHIN 1-2 DAYS OF ADMISSION. 04/10/[address]
[2019-04-10] MEDS ORDERED: VANCOMYCIN 1,000 MG in DEXTROSE 5% 250 ML IV SCH (09:00)
[2019-04-10 09:40] LABS: BASOPHILS # (AUTO) 0.1 K/uL (0.00-0.22); BASOPHILS % (AUTO) 0.8 % (0.0-2.0); EOSINOPHILS % (AUTO) 0.1 % (0.0-4.0); HEMATOCRIT 32.9 % (36-52); HEMOGLOBIN 11.2 g/dL (12.0-18.0); LYMPHOCYTES # (AUTO) 0.2 K/uL (2.0-11.5); LYMPHOCYTES % (AUTO) 1.9 % (20.5-51.1); MEAN CORPUSCULAR HEMOGLOBIN 32 pg (27-31); MEAN CORPUSCULAR HGB CONC 34 g/dL (33-37); MEAN CORPUSCULAR VOLUME 92.9 fL (80-94); MONOCYTES % (AUTO) 0.2 % (1.7-9.3); NEUTROPHILS # (AUTO) 7.9 K/uL (1.8-7.7); PLATELET COUNT (AUTO) 27 K/uL (140-450); RED BLOOD CELL COUNT(AUTO) 3.54 MIL/uL (4.20-6.10); RED CELL DISTRIBUTION WIDTH 16.5 % (11.6-13.7); WHITE BLOOD COUNT (AUTO) 8.1 K/uL (4.8-10.8)
--- NOTE | 2019-04-10 10:30 | NUR ---
DR. WADE AT BEDSIDE TO ASSESS PT. DR. WADE HAD CONVERSATION WITH PT'S DAUGHTER THADDEUS SAHH. PT'S DAUGHTER WANTED TO COMFORT CARE ONLY DUE TO HIS FAMILY DOES NOT WANT PT SUFFER. PER THADDEUS, SHE WILL CALL ALL THE FAMILY COME IN TO VISIT PT. AT THAT TIME, WE CAN START MORPHINE DRIP. WHEN PT RR <16, REMOVE BIPAP.
--- NOTE | 2019-04-10 11:10 | NUR ---
1.1 L FLUID DRAINED FROM RIGHT LATERAL ABD BY PT'S DAUGHTER THADDEUS. DRAINAGE BOTTLE BROUGHT FROM HOME BY PT'S FAMILY. THADDEUS STATED SHE WAS THE ONE TO DRAIN IT AT HOME. DR. WADE MADE AWARE OF IT.
[2019-04-10 11:36] LABS: ANION GAP 24.5 (8-16); CARBON DIOXIDE 16.3 mmol/L (21-32); CREATININE 3.2 mg/dL (0.6-1.3); POTASSIUM 3.8 mmol/L (3.5-5.1)
[2019-04-10 11:37] LABS: MAGNESIUM 2.1 mg/dL (1.8-2.4); PHOSPHORUS 7.3 mg/dL (2.5-4.9)
--- NOTE | 2019-04-10 12:45 | NUR ---
RD SPOKE TO SHERRY SCHILLING WHO MADE RD AWARE THAT [facility] ARE NO LONGER NEEDED. TPN ORDER WAS CANCELLED. PLEASE CONTACT RD IF THERE ARE ANY CHANGES IN STATUS. LEELEE OWENS RD
[2019-04-10] MEDS: MORPHINE SULFATE 100 MG in NACL 0.9% 90 ML IV PRN ×2 (13:26→22:17)
--- NOTE | 2019-04-10 13:30 | NUR ---
pt's daughter Kenzie stated they are ready to start comfort care .
--- NOTE | 2019-04-10 14:07 | NUR ---
WOUND CARE EVALUATION NOTE: REASON FOR EVALUATION: MULTIPLE PRESSURE ULCER WOUND SKIN ASSESSMENT DONE WITH THIS 63 Y/O MALE PT ADMITTED FROM HOME TO [facility] WITH INITIAL DX OF SEPSIS. PAST MEDICAL HX INCLUDES DM, STAGE 4 PANCREATIC CANCER. ALL ABOVE INFORMATION OBTAINED FROM ADMISSION H&P. PT. ADMITTED WITH MULTIPLE PRESSURE ULCER INJURIES, PLAN OF CARE DISCUSSED WITH PRIMARY RN AND PER RESTAURANT LINE SERVER IS READY FOR COMFORT CARE. INTEGUMENTARY: -SACRALCOCCYX UN-STAGEABLE PRESSURE ULCER 4X2CM ,100% DARK BROWN SOFT ESCHAR RYAN WOUND SKIN REDNESS -LEFT ISCHIUM STAGE 2 MULTIPLE SKIN BREAKS WITH LARGEST 1X2X0.1CM, RYAN WOUND SKIN PALE IN COLOR RECOMMENDATIONS: -PAINT SACRALCOCCYX WITH BETADINE CLARICE. BID AND LALA -CLEANSE LEFT ISCHIUM WITH NS AND GAUZE, PAT DRY, APPLY WITH ADAPTIC DRESSING, COVER WITH DRY DRESSING Q DAY AND PRN WITH SOILING. -OFFLOAD BILATERAL HEELS BY PLACING PILLOWS UNDER CALVES UNLESS OTHERWISE CONTRAINDICATED -PRESSURE REDISTRIBUTION SURFACE THERAPY -TURN AND REPOSITION Q2H, OFFLOAD SACRALCOCCYX BY TURNING RIGHT AND LEFT -CONTINUE TO FOLLOW RD RECOMMENDATIONS ALL ABOVE RECOMMENDATIONS DISCUSSED WITH PRIMARY RN WILL FOLLOW UP PT Q7-10 DAYS. PLEASE CONTACT WOUND CARE NURSE FOR ANY QUESTION AND CHANGE OF WOUND CONDITION.
--- NOTE | 2019-04-10 14:20 | NUR ---
PER PT'S DAUGHTER THADDEUS. PT HAS HAD THE SACRAL DECUB SINCE FEBRUARY 2019.
--- NOTE | 2019-04-10 14:40 | NUR ---
RECEIVED PHONE CALL FROM DR. WADE, TITRATE MORPHINE DRIP ONCE IN A WHILE TO MAKE SURE PT RR LESS THAN 16 PER MIN, THEN REMOVE BIPAP, DOES NOT WANT PT HAS LABOR BREATHING. RT SCOTT MADE AWARE.
--- NOTE | 2019-04-10 15:07 | NUR ---
DISCHARGE PLANNING: THIS IS A 63 Y/O MALE PATIENT FROM HOME, WHO CAME IN DUE TO SYNCOPE. PAST MEDICAL HISTORY INCLUDE PANCREATIC CA AND DIABETES. INITIAL DIAGNOSIS OF SEPSIS AND PNEUMONIA. CURRENT LABS INCLUDE WBC 8.1, H/H 11.2/32.9, NA/K 138/3.8. LACTIC ACID ON ADMISSION 3.9. DNR AND ON COMFORT MEASURES. PER ATTENDING'S NOTES WILL START ON MORPHINE DRIP TO RESP RATE BELOW 16 AND TRANSITION TO AEROSOL SIMPLE OXYGEN MASK THEN NASAL CANNULA. WILL FOLLOW UP. Addendum: 04/10/19 at 1515 by Obdulia Lui CM CONTACTED [facility] AT [phone] TO PROVIDE UPDATE ON THE PATIENT. Addendum: 04/11/19 at 5660 by Obdulia Lui CM CM [facility] MADE AWARE OF PATIENT'S EXPIRATION.
--- NOTE | 2019-04-10 16:49 | NUR ---
FAMILY AT BEDSIDE, PT RR FLUCTUATED BETWEEN 16-18.
--- NOTE | 2019-04-10 18:55 | NUR ---
NOTIFIED PM SHIFT RN. DR. WADE WANTS TO REMOVE BIPAP WHEN PT'S RR LESS THAN 16, SO FAR RR FLUCTUATE BETWEEN 15-16. RR 17 ONCE IN A WHILE.
--- NOTE | 2019-04-10 19:30 | NUR ---
NON VERBAL, UNABLE TO MAKE NEEDS KNOWN. DOES NOT FOLLOW COMMANDS. ON BIPAP. PT HAS MEDI-PORT ON R UPPER CHEST INFUSING MORPHINE @ 9ML/HR, PER ORDERS. G-TUBE IN PLACE. DRAINAGE TUBE TO RIGHT LATERAL ABD IN PLACE. BOWEL SOUNDS HYPOACTIVE, ABD SOFT, NON-DISTENDED. ESTRADA CATH IN PLACE DRAINING SCANT AMOUNT OF CONCENTRATED, STRAW-COLORED URINE TO GRAVITY. EDEMA TO LEFT ARM WITH SOME CLEAR, BLOOD-TINGED, WEEPING NOTED. SCATTERED BRUISING ON BILATERAL UPPER ARMS NOTED. SACRAL WOUND COVERED WITH INTACT FOAM DRESSING. PT CONTINUES ON COMFORT CARE MEASURES AT THIS TIME. NO LIFE-SUSTAINING MEASURES WILL BE IN PLACE, PER FAMILIES REQUEST. POLST ON FILE AND SIGNED BY FAMILY AND MD. FAMILY AT BEDSIDE AND REQUESTING PT NOT TO BE TURNED. HOB 30 DEGREES. BED LOCKED IN LOWEST POSITION. ALL OTHER SAFETY PRECAUTIONS IN PLACE. WILL FOLLOW-UP.
--- NOTE | 2019-04-10 19:48 | NUR ---
RT AT BEDSIDE. BIPAP REMOVED, REPLACED WITH SIMPLE MASK AT THIS TIME. 02 @ 15 LPM. RR 14, SPO2 78%. COMFORT MEASURES BEING PROVIDED WITH MORPHINE DRIP IN PROGRESS TO KEEP RR BELOW 16, PER MD ORDERS. WILL CONTINUE TO MONITOR.
--- NOTE | 2019-04-10 19:49 | NUR ---
PT REMOVED FROM BiPAP ORDERED BY DR. WADE. PT RR IS 15. PT WAS PLACED ON SIMPLE MASK. FAMILY AT BEDSIDE.
--- NOTE | 2019-04-10 20:32 | NUR ---
FAMILY AT BEDSIDE.
--- NOTE | 2019-04-11 00:20 | NUR ---
ONE CALL TO ONE LEGACY; SPOKE WITH ИВАН; QUESTIONS ANSWERED; BODY RELEASED.CASE # [id number]
--- NOTE | 2019-04-11 00:28 | NUR ---
CALL PLACED TO [facility] [employer]IN[employer] ATTENDANT OFFICE. AWAITING RETURN CALL.
--- NOTE | 2019-04-11 01:40 | NUR ---
SPOKE WITH PATTERN[employer] PLASTER AND PLASTIC EULALIO @ THIS TIME. BODY ABLE TO BE RELEASED TO MORTUARY.
--- NOTE | 2019-04-11 01:50 | NUR ---
PHONE CALL TO [facility]. SPOKE WITH JENNIFER. 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 FAMILY STILL AT BEDSIDE.
== END 2019-04-11 02:50 | disposition expired | DRG 720 ==
LOC: MED 00:09 → MIC 03:27
PROVIDERS: ADMIT Internal Medicine Pulmonary Disease; ATTEND Internal Medicine Pulmonary Disease
PROC: 5A09357 Assistance with Respiratory Ventilation, Less than 24 Consecutive Hours, Continuous Positive Airway Pressure (ICD-10-PCS; 2019-04-08)
PROC: 0W9B3ZZ Drainage of Left Pleural Cavity, Percutaneous Approach (ICD-10-PCS; 2019-04-08)
PROC: 30233N1 Transfusion of Nonautologous Red Blood Cells into Peripheral Vein, Percutaneous Approach (ICD-10-PCS; principal; 2019-04-09)
PROC: 5A09357 Assistance with Respiratory Ventilation, Less than 24 Consecutive Hours, Continuous Positive Airway Pressure (ICD-10-PCS; 2019-04-09)
DX: A41.9 Sepsis, unspecified organism (principal); J96.01 Acute respiratory failure with hypoxia; R65.21 Severe sepsis with septic shock; G93.41 Metabolic encephalopathy; E43 Unspecified severe protein-calorie malnutrition; K85.90 Acute pancreatitis without necrosis or infection, unspecified; C25.9 Malignant neoplasm of pancreas, unspecified; J90 Pleural effusion, not elsewhere classified; J18.9 Pneumonia, unspecified organism; N17.9 Acute kidney failure, unspecified; R18.8 Other ascites; D69.6 Thrombocytopenia, unspecified; E11.649 Type 2 diabetes mellitus with hypoglycemia without coma; E87.70 Fluid overload, unspecified; E86.0 Dehydration; E87.0 Hyperosmolality and hypernatremia; N39.0 Urinary tract infection, site not specified; Z66 Do not resuscitate; E87.6 Hypokalemia; E87.8 Other disorders of electrolyte and fluid balance, not elsewhere classified; K74.60 Unspecified cirrhosis of liver; Z93.1 Gastrostomy status; Z79.899 Other long term (current) drug therapy; Z68.1 Body mass index [BMI] 19.9 or less, adult
CPT/HCPCS: 36415; 70450; 71250; 76700; 80048; 80053; 80202; 81001; 82150; 82550; 82945; 82948; 83605; 83615; 83690; 83735; 83880; 84100; 84157; 84484; 85025; 85379; 85384; 85610; 85730; 86886; 86900; 86901; 86920; 87040; 87070; 87075; 87081; 87086; 87205; 89051; 93005; 94640; 94660; 96365; 96367; 96368; 96375; 99291; 99292; J1610; J2060; J2270; J2543; J3010; J3370; J3480; J3490; J7030; J7060; J7620; P9016; P9046; Q0092